=== PATIENT | male | born 1950 | race Caucasian/White ===

== ENCOUNTER 2021-01-25 08:10 | Inpatient (IN) | payer MEDICARE, BC, OTHER ==
[2021-01-23 10:51] VITALS: BP 114/72
[2021-01-23 11:09] LABS: ALBUMIN 1.7 g/dL (3.4-5.0); ANION GAP 14 mmol/L (5-15); CALCIUM 7.8 mg/dL (8.5-10.1); CHLORIDE 104 mmol/L (98-107)
[2021-01-23 11:21] LABS: ALANINE AMINOTRANSFERASE 154 U/L (12-78); ALKALINE PHOSPHATASE 791 U/L (45-117)
[2021-01-23 12:08] LABS: CREATININE 2.15 mg/dL (0.7-1.3)
[2021-01-23 12:12] LABS: TOTAL PROTEIN 6.2 g/dL (6.4-8.2)
[2021-01-23 12:23] LABS: BILIRUBIN,TOTAL 26.4 mg/dL (0.2-1.0)
[~2021-01-25] VITALS: Ht 175.3 cm; Wt 85.3 kg
[~2021-01-25 08:10] MED LIST: ACET-76 PO; ASPI81TA45 PO; CHOL10003 PO; CLOP75TA PO; CYPR4TAB36 PO; FURO20TA3 PO; INSU100V35 INJ; LINA5TAB PO; LIRA0.6P2 INJ; MAGN500T PO; METF-754 PO; METF500T27 PO; METO50TA82 PO; MULT-717 PO; NITR0.4T41 SL; PRAV40TA2 PO
[2021-01-25] MEDS ORDERED: LACTATED RINGERS 1,000 ML IV SCH (09:00)
[2021-01-25] MEDS ORDERED: CHLORHEXIDINE 15 ML UDC PO ONE (09:00)
[2021-01-25 09:50] LABS: ANION GAP 15 mmol/L (5-15); CALCIUM 8.5 mg/dL (8.5-10.1); CHLORIDE 104 mmol/L (98-107); CREATININE 2.84 mg/dL (0.7-1.3)
[2021-01-25] MEDS ORDERED: SODIUM CHLORIDE 0.9% 1,000 ML IV SCH (10:00)
[2021-01-25] MEDS ORDERED: POTASSIUM CHLORIDE 40 MEQ in SODIUM CHLORIDE 0.9% 500 ML IV ONE ×2 (10:30→16:00)
[2021-01-25 12:16] VITALS: BP 138/85
[2021-01-25 14:49] VITALS: BP 133/72
[2021-01-25 15:20] LABS: ALBUMIN 1.5 g/dL (3.4-5.0); ANION GAP 9 mmol/L (5-15); CALCIUM 8.4 mg/dL (8.5-10.1); CHLORIDE 106 mmol/L (98-107)
[2021-01-25 15:21] LABS: MEAN CORPUSCULAR HEMOGLOBIN 32.5 pg (27.5-34.5); MEAN CORPUSCULAR HGB CONC 34.7 g/dL (33.2-36.2); MEAN PLATELET VOLUME 8.7 fL (7.4-10.4); PLATELET COUNT 378 x10^3/uL (130-400); RED BLOOD COUNT 4.16 x10^6/uL (4.38-5.82); RED CELL DISTRIBUTION WIDTH 18.6 % (9.4-14.8)
[2021-01-25 15:32] LABS: ALKALINE PHOSPHATASE 800 U/L (45-117)
[2021-01-25 15:53] LABS: ALANINE AMINOTRANSFERASE 155 U/L (12-78); CREATININE 2.05 mg/dL (0.7-1.3)
[2021-01-25 15:54] LABS: TOTAL PROTEIN 6.1 g/dL (6.4-8.2)
[2021-01-25] MEDS ORDERED: hydrALAzine 20 MG/ML, 1ML IVPush PRN (16:00)
[2021-01-25] MEDS ORDERED: ONDANSETRON ODT 4 MG PO PRN (16:00)
[2021-01-25] MEDS ORDERED: ACETAMINOPHEN 325 MG TABLET PO PRN (16:00)
[2021-01-25] MEDS ORDERED: morphine SULFATE 10 MG/ML, 1ML IVPush PRN (16:00)
[2021-01-25] MEDS ORDERED: ONDANSETRON 2MG/ML, 2ML IVPush PRN (16:00)
[2021-01-25] MEDS ORDERED: ENALAPRILAT 1.25 MG/ML, 2ML IVPush PRN (16:00)
[2021-01-25 16:01] LABS: BILIRUBIN,TOTAL 27.1 mg/dL (0.2-1.0)
[2021-01-25] MEDS: hydrOXyzine 10MG TABLET PO PRN ×2 (16:06→20:25)
[2021-01-25] MEDS: DIPHENHYDRAMINE 25 MG CAPSULE PO PRN ×2 (16:06→22:21)
[2021-01-25 16:07] LABS: <PLATELET ESTIMATE> ADEQUATE; <PLT MORPHOLOGY> NORMAL PLT MORPH; EOS% (MANUAL) 1 % (1-7); LYMPH#(MANUAL) 1.31 x10^3/uL (1-3.4); LYMPHS% (MANUAL) 13 % (22-44); MONOS#(MANUAL) 0.61 x10^3/uL (0.3-2.7); MONOS% (MANUAL) 6 % (2-9); SEG#(MANUAL) 8.08 x10^3/uL (1.8-6.8); SEGS% (MANUAL) 80 % (42-75)
[2021-01-25] MEDS: DEXTROSE 5% 1,000 ML IV SCH (16:07)
[2021-01-25 16:08] LABS: ANISOCYTOSIS 2+; TARGET CELLS 1+
[2021-01-25 16:09] LABS: HYPOCHROMIA 1+
[2021-01-25 16:41] LABS: MICROSCOPIC AUTO
[2021-01-25 18:27] VITALS: BP 133/72
[2021-01-25 20:35] VITALS: BP 133/73
[2021-01-26 00:17] VITALS: BP 156/72
[2021-01-26] MEDS: hydrOXyzine 10MG TABLET PO PRN ×3 (00:45→16:54)
[2021-01-26 05:04] LABS: MEAN CORPUSCULAR HEMOGLOBIN 32.4 pg (27.5-34.5); MEAN CORPUSCULAR HGB CONC 34.5 g/dL (33.2-36.2); MEAN PLATELET VOLUME 8.9 fL (7.4-10.4); PLATELET COUNT 324 x10^3/uL (130-400); RED BLOOD COUNT 3.64 x10^6/uL (4.38-5.82); RED CELL DISTRIBUTION WIDTH 18.5 % (9.4-14.8)
[2021-01-26] MEDS: DIPHENHYDRAMINE 25 MG CAPSULE PO PRN ×2 (05:07→16:54)
[2021-01-26 05:16] LABS: INTERNATIONAL NORMALIZED RATIO 1.91 (0.93-1.1); PROTHROMBIN TIME 19.8 Seconds (9.6-11.5)
[2021-01-26 05:19] LABS: CHLORIDE 106 mmol/L (98-107)
[2021-01-26 05:36] LABS: ALANINE AMINOTRANSFERASE 123 U/L (12-78); ALBUMIN 1.3 g/dL (3.4-5.0); ALKALINE PHOSPHATASE 667 U/L (45-117); ANION GAP 12 mmol/L (5-15); CALCIUM 7.9 mg/dL (8.5-10.1)
[2021-01-26 05:41] LABS: CREATININE 2.25 mg/dL (0.7-1.3); TOTAL PROTEIN 5.3 g/dL (6.4-8.2)
[2021-01-26 05:43] LABS: BILIRUBIN,TOTAL 24.3 mg/dL (0.2-1.0)
[2021-01-26 06:25] LABS: BAND#(MANUAL) 0.29 x10^3/uL; BANDS%(MANUAL) 3 % (0-7); BASOS% (MANUAL) 1 % (0-1); EOS#(MANUAL) 0.29 x10^3/uL (0.0-0.4); EOS% (MANUAL) 3 % (1-7); LYMPH#(MANUAL) 1.15 x10^3/uL (1-3.4); LYMPHS% (MANUAL) 12 % (22-44); METAMYELOCYTES# (MANUAL) 0.38 x10^3/uL (0-0); METAMYELOCYTES% (MANUAL) 4 % (0-1); MONOS#(MANUAL) 0.58 x10^3/uL (0.3-2.7); MONOS% (MANUAL) 6 % (2-9); MYELOCYTES# (MANUAL) 0.19 x10^3/uL (0-0); MYELOCYTES% (MANUAL) 2 % (0-0); SEG#(MANUAL) 6.62 x10^3/uL (1.8-6.8); SEGS% (MANUAL) 69 % (42-75)
[2021-01-26 06:26] LABS: <PLATELET ESTIMATE> ADEQUATE; <PLT MORPHOLOGY> NORMAL PLT MORPH; ANISOCYTOSIS 2+; POLYCHROMASIA 1+; SPHEROCYTES 1+; TARGET CELLS 1+
[2021-01-26 07:00] VITALS: BP 123/75
[2021-01-26] MEDS ORDERED: PHYTONADIONE 10 MG in SODIUM CHLORIDE 0.9% 50 ML IV ONE (08:00)
[2021-01-26] MEDS ORDERED: PHYTONADIONE 10 MG/ML, 1ML IV ONE (08:00)
[2021-01-26] MEDS: DEXTROSE 5% 1,000 ML IV SCH (08:20)
[2021-01-26] MEDS ORDERED: OMNIPAQUE 350 MG/ML, 50 ML BOTTLE ONE (08:54)
[2021-01-26] MEDS ORDERED: CHLORHEXIDINE 15 ML UDC ONE (10:14)
[2021-01-26] MEDS ORDERED: FENTANYL PF 100 MCG/2ML ONE (10:40)
[2021-01-26] MEDS ORDERED: DEXAMETHASONE 4 MG/ML, 5ML ONE (11:00)
[2021-01-26] MEDS ORDERED: PROPOFOL 10 MG/ML, 20ML ONE (11:00)
[2021-01-26] MEDS ORDERED: ONDANSETRON 2MG/ML, 2ML ONE (11:00)
[2021-01-26] MEDS ORDERED: LIDOCAINE-MPF 2% ,5ML ONE (11:00)
[2021-01-26] MEDS ORDERED: MIDAZOLAM 1 MG/ML, 2ML IV PRN (11:30)
[2021-01-26] MEDS ORDERED: LABETALOL 5MG/ML, 20ML IV PRN (11:30)
[2021-01-26] MEDS ORDERED: ALBUTEROL SULFATE 2.5 MG/3 ML NPPB PRN (11:30)
[2021-01-26] MEDS ORDERED: PROMETHAZINE 25 MG/ML, 1ML IVPush PRN (11:30)
[2021-01-26] MEDS ORDERED: OXYcodone 5 MG/5 ML ORAL.SOL UDC PO PRN (11:30)
[2021-01-26] MEDS ORDERED: FENTANYL PF 100 MCG/2ML IV PRN (11:30)
[2021-01-26 13:20] VITALS: BP 146/77
[2021-01-26 13:33] VITALS: BP 155/70
[2021-01-26] MEDS ORDERED: HYDR-2995 PO (15:04)
[2021-01-26] MEDS ORDERED: DIPH25CA26 PO (15:04)
== END 2021-01-26 18:23 | disposition home or self-care (01) | DRG 435 ==
LOC: OUT 08:10 → 4WST 10:45
PROVIDERS: ADMIT Hospitalist; ATTEND Hospitalist
PROC: 0FBG8ZX Excision of Pancreas, Via Natural or Artificial Opening Endoscopic, Diagnostic (ICD-10-PCS; 2021-01-25)
PROC: 0DB68ZX Excision of Stomach, Via Natural or Artificial Opening Endoscopic, Diagnostic (ICD-10-PCS; 2021-01-26)
PROC: BD47ZZZ Ultrasonography of Gastrointestinal Tract (ICD-10-PCS; 2021-01-26)
PROC: 0F798DZ Dilation of Common Bile Duct with Intraluminal Device, Via Natural or Artificial Opening Endoscopic (ICD-10-PCS; principal; 2021-01-26 11:00)
PROC: BF111ZZ Fluoroscopy of Biliary and Pancreatic Ducts using Low Osmolar Contrast (ICD-10-PCS; 2021-01-26 11:00)
DX: C25.0 Malignant neoplasm of head of pancreas (principal); K83.1 Obstruction of bile duct; E87.6 Hypokalemia; E11.649 Type 2 diabetes mellitus with hypoglycemia without coma; I25.10 Atherosclerotic heart disease of native coronary artery without angina pectoris; E66.9 Obesity, unspecified; R97.0 Elevated carcinoembryonic antigen [CEA]; N18.30 Chronic kidney disease, stage 3 unspecified; I12.9 Hypertensive chronic kidney disease with stage 1 through stage 4 chronic kidney disease, or unspecified chronic kidney disease; Z20.822 Contact with and (suspected) exposure to COVID-19; Z68.27 Body mass index [BMI] 27.0-27.9, adult; Z95.5 Presence of coronary angioplasty implant and graft; Z90.49 Acquired absence of other specified parts of digestive tract; Z88.5 Allergy status to narcotic agent
CPT/HCPCS: 36415; 74328; 80048; 80053; 81001; 82378; 82962; 83690; 83735; 85025; 85610; 86301; 87635; 88112; 88172; 88173; 88305; 88307; 93005; G0378; J1100; J2405; J2704; J3010; J3480; J7070; Q9967; C1769; C1894; C2625; J7030; J7040; Q0163